=== PATIENT | female | born 1970 | race Caucasian/White ===

== ENCOUNTER 2017-01-27 09:21 | Day surgery (SDC) | payer MEDICARE, MEDICAID ==
[~2017-01-27] VITALS: Ht 157.5 cm; Wt 104.3 kg
[2017-01-27 15:42] VITALS: BP 113/67
--- NOTE | 2017-01-27 16:10 | RADIOLOGY REPORT PS360 ---
CHEST-PORTABLE HISTORY: PACEMAKER BATTERY CHANGE ORDERING PHYSICIAN: Everett Gan MD PATIENT AGE: 46 years COMPARISON: None available FINDINGS: Bipolar cardiac pacemaker device is present from left subclavian approach. Skin clips are present over the pacemaker in the left chest. Normal heart size. Mild atelectatic changes in the lung bases. Bone plate is present over the lower cervical spine. No evidence of pneumothorax. IMPRESSION: 1. Bipolar cardiac pacemaker device present. 2. Mild bibasilar atelectasis
--- NOTE | 2017-02-08 15:26 | Operative Note ---
Pacemaker Procedure performed: Pacemaker battery replacement Date of procedure: 01/27/17 Time: 1000 Preoperative Diagnosis: Symptomatic bradycardia Device KATJA Indication for test: See above Complications: None EBL Less than 10 ml Technique: 1% Lidocaine with epinephrine used to anesthetize the left anterior aspect of the chest.Scalpel was used to make the initial cutaneous incision while electrocautery was used to dissect down into the fascia. The fascia was lifted off the pectoralis muscle and digitally manipulated down to the pocket containing the pacemaker. The atrial and ventricular leads were then disconnected from the existing generator and the generator removed. The new generator was placed in the existing pocket, the atrial and ventricular leads were tested and found to be working appropriately and subsequently connected to the new generator. Pacemaker generator was then secured to the fascia using 3-0 silk. 1 gram of Ancef was used to flush the pocket. Following the pacemaker being secured to the fascia and in place, Monocryl was used to close the subcutaneous layers while yaneth were used to close the cutaneous layer. A pressure dressing was placed and the patient was transferred to the postop holding area in stable condition for postoperative care. Impression: Procedure 1. Pocket revision for PPM. 2. Explantation of existing generator 3. Implantation of new generator and interrogation of existing leads Interrogation: New Generator [employer] Model # [id number] Serial # [id number] Removed Generator [employer] Model 5826 Serial [id number] Existing RA Model # 1888TC/46 Serial # [id number] P-wave 2.5 Impedance 350 Threshold 0.5 Pulse Width 0.4 mA Existing RVA Model # 1888TC/52 Serial # [id number] R-wave 7-8 Impedance 430 Threshold 1.0 Pulse Width 0.4 mA Pacing Parameters: Mode: DDDR Base/Max Track: 70/140 Max Sensor Plan: Routine post op care
--- NOTE | 2017-02-08 15:26 | Operative Note ---
Pacemaker Procedure performed: Pacemaker battery replacement Date of procedure: 01/27/17 Time: 1000 Preoperative Diagnosis: Symptomatic bradycardia Device KATJA Indication for test: See above Complications: None EBL Less than 10 ml Technique: 1% Lidocaine with epinephrine used to anesthetize the left anterior aspect of the chest.Scalpel was used to make the initial cutaneous incision while electrocautery was used to dissect down into the fascia. The fascia was lifted off the pectoralis muscle and digitally manipulated down to the pocket containing the pacemaker. The atrial and ventricular leads were then disconnected from the existing generator and the generator removed. The new generator was placed in the existing pocket, the atrial and ventricular leads were tested and found to be working appropriately and subsequently connected to the new generator. Pacemaker generator was then secured to the fascia using 3-0 silk. 1 gram of Ancef was used to flush the pocket. Following the pacemaker being secured to the fascia and in place, Monocryl was used to close the subcutaneous layers while yaneth were used to close the cutaneous layer. A pressure dressing was placed and the patient was transferred to the postop holding area in stable condition for postoperative care. Impression: Procedure 1. Pocket revision for PPM. 2. Explantation of existing generator 3. Implantation of new generator and interrogation of existing leads Interrogation: New Generator [employer] Model # [id number] Serial # [id number] Removed Generator [employer] Model 5826 Serial [id number] Existing RA Model # 1888TC/46 Serial # [id number] P-wave 2.5 Impedance 350 Threshold 0.5 Pulse Width 0.4 mA Existing RVA Model # 1888TC/52 Serial # [id number] R-wave 7-8 Impedance 430 Threshold 1.0 Pulse Width 0.4 mA Pacing Parameters: Mode: DDDR Base/Max Track: 70/140 Max Sensor Plan: Routine post op care
== END 2017-01-27 15:26 | disposition home or self-care (01) ==
LOC: SDC 09:21
PROC: 0JPT0PZ Removal of Cardiac Rhythm Related Device from Trunk Subcutaneous Tissue and Fascia, Open Approach (ICD-10-PCS; principal; 2017-01-27)
PROC: 0JH606Z Insertion of Pacemaker, Dual Chamber into Chest Subcutaneous Tissue and Fascia, Open Approach (ICD-10-PCS; 2017-01-27)
DX: T82.191A Other mechanical complication of cardiac pulse generator (battery), initial encounter (principal); Z45.018 Encounter for adjustment and management of other part of cardiac pacemaker; I49.5 Sick sinus syndrome